=== PATIENT | male | born 1995 | race Caucasian/White ===

== ENCOUNTER 2020-11-11 09:06 | Outpatient (CLI) | payer OTHER | END 2020-11-11 09:07 | disposition home or self-care (01) | LOC: EMS 09:06 | DX: R42 Dizziness and giddiness (principal) ==

== ENCOUNTER 2020-11-11 09:58 | Emergency (ER) | payer OTHER ==
--- NOTE | 2020-11-11 10:09 | ED Physician Documentation ---
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 He was lifting a missile and afterwards developed presyncope. 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 The first time was about 1 minute, the second time was maybe 4 minutes. There is no associated chest pain or trouble breathing. He feels fine now. Review of Systems Ten Systems: 10 systems reviewed and negative Constitutional: denies: Fever, Fatigue Ears: denies: Drainage/discharge Nose: denies: Rhinorrhea / runny nose Cardiac: denies: Chest pain / pressure, Palpitations Respiratory: denies: Dyspnea, Cough PD PAST MEDICAL HISTORY - Present Medications Home Medications: Ambulatory Orders Medication Instructions Recorded Confirmed No Known Home Medications 11/11/20 11/11/20 - Allergies Allergies/Adverse Reactions: Allergies Allergy/AdvReac Type Severity Reaction Status Date / Time No Known Drug Allergies Allergy Verified 11/11/20 10:05 PD ED PE NORMAL - Vitals Vital signs reviewed: Yes - General General: Alert and oriented X 3, No acute distress - HEENT HEENT: PERRL, EOMI - Neck Neck: Supple, no meningeal sign, No bony TTP - Cardiac Cardiac: RRR, No murmur - Respiratory Respiratory: No respiratory distress, Clear bilaterally - Abdomen Abdomen: Non tender - Derm Derm: Normal color, Warm and dry - Extremities Extremities: No edema, No calf tenderness / cord - Neuro Neuro: Alert and oriented X 3, Normal speech Results - Vitals Vitals: Vital Signs - 24 hr 11/11/20 11/11/20 11/11/20 10:05 10:14 10:33 Temperature 36.8 C Heart Rate 80 77 Heart Rate [ 79 Sitting] Heart Rate [ 88 Standing] Heart Rate [ 78 Supine] Respiratory 16 18 Rate Blood Pressure 132/73 H 126/68 Blood Pressure 122/62 [Sitting] Blood Pressure 114/71 [Standing] Blood Pressure 127/71 [Supine] O2 Saturation 98 99 Oxygen O2 Source Room air - EKG (time done) 1002 Rate: Rate (enter#) (71) Rhythm: NSR [place]: Normal Intervals: Normal VA QRS: Normal Ischemia: Normal ST segments - Labs Labs: Laboratory Tests 11/11/20 11/11/20 10:25 10:25 WBC 8.3 RBC 4.71 Hgb 14.2 Hct 43.6 MCV 92.6 MCH 30.1 MCHC 32.6 RDW 12.4 Plt Count 271 MPV 10.3 Neut # (Auto) 6.6 Lymph # (Auto) 1.0 L [place] # (Auto) 0.5 Eos # (Auto) 0.1 Baso # (Auto) 0.0 Absolute Nucleated RBC 0.00 Nucleated RBC % 0.0 Sodium 143 Potassium 4.2 Chloride 106 Carbon Dioxide 29 Anion Gap 8.0 BUN 15 Creatinine 1.2 Estimated GFR (MDRD) 73 L Glucose 101 H Calcium 9.6 PD MEDICAL DECISION MAKING - ED course ED course: 24-year-old gentleman with presyncope this morning, no concerning other symptoms along with it such as chest pain or trouble breathing. His exam is normal. EKG is normal. Orthostatics are negative. Departure - Departure Disposition: 01 Home, Self Care Clinical Impression: Pre-syncope Condition: Good Record reviewed to determine appropriate education?: Yes Instructions: ED Near Syncope Vasovagal Comments: No worrisome findings today, your EKG and exam are normal. Your orthostatic vital signs are normal. Return for new or worsening symptoms. [place] Generally take it easy the rest of the day today.
[2020-11-11 10:30] LABS: BASOPHILS % (AUTO) 0.4 %; EOSINOPHILS # (AUTO) 0.1 10^3/uL (0.0-0.7); EOSINOPHILS % (AUTO) 1.6 %; HCT - HEMATOCRIT 43.6 % (42.0-52.0); HGB - HEMOGLOBIN 14.2 g/dL (14.0-18.0); LYMPHOCYTES % (AUTO) 12.1 %; MEAN CORPUSCULAR HEMOGLOBIN 30.1 pg (27.0-31.0); MEAN CORPUSCULAR HGB CONC 32.6 g/dL (32.0-36.0); MEAN CORPUSCULAR VOLUME 92.6 fL (80.0-94.0); MEAN PLATELET VOLUME 10.3 fL (7.4-11.4); MONOCYTES # (AUTO) 0.5 10^3/uL (0.0-1.0); MONOCYTES % (AUTO) 5.7 %; NEUTROPHILS # (AUTO) 6.6 10^3/uL (1.5-6.6); PLT - PLATELET COUNT 271 10^3/uL (130-450); RED BLOOD COUNT 4.71 10^6/uL (4.70-6.10); RED CELL DISTRIBUTION WIDTH 12.4 % (12.0-15.0); WHITE BLOOD COUNT 8.3 x10^3/uL (4.8-10.8)
[2020-11-11 10:34] VITALS: BP 126/68
[2020-11-11 10:39] LABS: CALCIUM 9.6 mg/dL (8.5-10.3); CREATININE 1.2 mg/dL (0.6-1.2); POTASSIUM 4.2 mmol/L (3.5-5.0)
== END 2020-11-11 10:59 | disposition home or self-care (01) ==
LOC: ED 09:58
DX: R55 Syncope and collapse (principal)
CPT/HCPCS: 36415; 80048; 85025; 93005; 99282; 99283

== ENCOUNTER 2021-07-01 15:13 | Emergency (ER) | payer OTHER ==
[2021-07-01 15:51] LABS: BASOPHILS % (AUTO) 0.5 %; EOSINOPHILS # (AUTO) 0.1 10^3/uL (0.0-0.7); EOSINOPHILS % (AUTO) 1.6 %; HCT - HEMATOCRIT 46.2 % (42.0-52.0); HGB - HEMOGLOBIN 15.2 g/dL (14.0-18.0); LYMPHOCYTES # (AUTO) 1.7 10^3/uL (1.5-3.5); LYMPHOCYTES % (AUTO) 22.2 %; MEAN CORPUSCULAR HEMOGLOBIN 29.5 pg (27.0-31.0); MEAN CORPUSCULAR HGB CONC 32.9 g/dL (32.0-36.0); MEAN CORPUSCULAR VOLUME 89.7 fL (80.0-94.0); MEAN PLATELET VOLUME 10.4 fL (7.4-11.4); MONOCYTES # (AUTO) 0.5 10^3/uL (0.0-1.0); MONOCYTES % (AUTO) 6.2 %; NEUTROPHILS # (AUTO) 5.2 10^3/uL (1.5-6.6); NEUTROPHILS % (AUTO) 69.2 %; PLT - PLATELET COUNT 304 10^3/uL (130-450); RED BLOOD COUNT 5.15 10^6/uL (4.70-6.10); RED CELL DISTRIBUTION WIDTH 12.6 % (12.0-15.0); WHITE BLOOD COUNT 7.6 x10^3/uL (4.8-10.8)
[2021-07-01 16:08] LABS: MUDS CUTOFF CONCENTRATIONS CUTOFF CONC BELOW:
--- NOTE | 2021-07-01 16:09 | ED Physician Documentation ---
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 He was reportedly told today that the [employer] would not extend his enlistment contract and he is due to be discharged from the [employer] in August of this year. He then reported to them that he thought suicidal as an option. He states that it was just a way to deal with anxiety and that he has no real plan for self-harm. He has never harmed himself in the past. 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 Patient is clear with his provider that he does not wish to harm himself and that the statement was simply a coping mechanism. Review of Systems Constitutional: reports: Reviewed and negative Ears: reports: Reviewed and negative Nose: reports: Reviewed and negative Cardiac: reports: Reviewed and negative Respiratory: reports: Reviewed and negative GI: reports: Reviewed and negative : reports: Reviewed and negative Skin: reports: Reviewed and negative Neurologic: reports: Reviewed and negative Psychiatric: reports: Anxiety. denies: Depressed, Suicidal, Homicidal, Hallucinations, Delusions, Insomnia Endocrine: reports: Reviewed and negative PD PAST MEDICAL HISTORY - Past Surgical History Past Surgical History: No - Present Medications Home Medications: Ambulatory Orders Medication Instructions Recorded Confirmed No Known Home Medications 11/11/20 07/01/21 - Allergies Allergies/Adverse Reactions: Allergies Allergy/AdvReac Type Severity Reaction Status Date / Time No Known Drug Allergies Allergy Verified 07/01/21 15:27 - Social History Does the pt smoke?: No Smoking Status: Never smoker Does the pt drink ETOH?: No Does the pt have substance abuse?: No - Immunizations Immunizations are current?: Yes PD ED PE NORMAL - General General: Alert and oriented X 3, No acute distress, Well developed/nourished - HEENT HEENT: Atraumatic, Ears normal, Moist mucous membranes - Neck Neck: Supple, no meningeal sign, No adenopathy, No JVD - Cardiac Cardiac: RRR, No murmur, No gallop - Respiratory Respiratory: No respiratory distress, Clear bilaterally - Abdomen Abdomen: Normal bowel sounds, Soft, Non tender - Back Back: No CVA TTP - Derm Derm: Normal color, Warm and dry, No rash - Neuro Neuro: Alert and oriented X 3, hostess cashier 2-12 intact Eye Opening: Spontaneous Motor: Obeys Commands Verbal: Oriented GCS Score: 15 - Psych Psych: Normal mood, Normal affect, Other (Denies SI/HI. No auditory or visual hallucinations. Denies anxiety at this time. He makes good eye contact, has fluid speech. He is forward thinking. Discussing plans for when he is outside of the .) Results - Vitals Vitals: Vital Signs - 24 hr 07/01/21 15:27 Temperature 36.4 C L Heart Rate 73 Respiratory 18 Rate Blood Pressure 143/88 H O2 Saturation 98 Oxygen O2 Source Room air - Labs Labs: Laboratory Tests 07/01/21 07/01/21 07/01/21 15:45 15:45 15:45 WBC 7.6 RBC 5.15 Hgb 15.2 Hct 46.2 MCV 89.7 MCH 29.5 MCHC 32.9 RDW 12.6 Plt Count 304 MPV 10.4 Neut # (Auto) 5.2 Lymph # (Auto) 1.7 [place] # (Auto) 0.5 Eos # (Auto) 0.1 Baso # (Auto) 0.0 Absolute Nucleated RBC 0.00 Nucleated RBC % 0.0 Sodium 139 Potassium 4.1 Chloride 99 L Carbon Dioxide 29 Anion Gap 11.0 BUN 14 Creatinine 1.3 H Estimated GFR (MDRD) 66 L Glucose 95 Calcium 9.6 Total Bilirubin 1.0 AST 25 ALT 32 Alkaline Phosphatase 51 Total Protein 8.2 Albumin 4.8 Globulin 3.4 Albumin/Globulin Ratio 1.4 Lipase 30 TSH 1.36 Urine Color Urine Clarity Urine pH Ur Specific [place] Urine Protein Urine Glucose (UA) Urine Ketones Urine Occult Blood Urine Nitrite Urine Bilirubin Urine Urobilinogen Ur Leukocyte Esterase Ur Microscopic Review Urine Culture Comments Salicylates < 6.0 Urine Opiates Screen Ur Oxycodone Screen Urine Methadone Screen Ur Propoxyphene Screen Acetaminophen < 10 L Ur Barbiturates Screen Ur Tricyclics Screen Ur Phencyclidine Scrn Ur Amphetamine Screen U Methamphetamines Scrn U Benzodiazepines Scrn Urine Cocaine Screen U Cannabinoids Screen Ethyl Alcohol < 5.0 07/01/21 16:00 WBC RBC Hgb Hct MCV MCH MCHC RDW Plt Count MPV Neut # (Auto) Lymph # (Auto) [place] # (Auto) Eos # (Auto) Baso # (Auto) Absolute Nucleated RBC Nucleated RBC % Sodium Potassium Chloride Carbon Dioxide Anion Gap BUN Creatinine Estimated GFR (MDRD) Glucose Calcium Total Bilirubin AST ALT Alkaline Phosphatase Total Protein Albumin Globulin Albumin/Globulin Ratio Lipase TSH Urine Color YELLOW Urine Clarity CLEAR Urine pH 6.0 Ur Specific [place] 1.020 Urine Protein NEGATIVE Urine Glucose (UA) NEGATIVE Urine Ketones NEGATIVE Urine Occult Blood NEGATIVE Urine Nitrite NEGATIVE Urine Bilirubin NEGATIVE Urine Urobilinogen 0.2 (NORMAL) Ur Leukocyte Esterase NEGATIVE Ur Microscopic Review NOT INDICATED Urine Culture Comments NOT INDICATED Salicylates Urine Opiates Screen NEGATIVE Ur Oxycodone Screen NEGATIVE Urine Methadone Screen NEGATIVE Ur Propoxyphene Screen NEGATIVE Acetaminophen Ur Barbiturates Screen NEGATIVE Ur Tricyclics Screen NEGATIVE Ur Phencyclidine Scrn NEGATIVE Ur Amphetamine Screen NEGATIVE U Methamphetamines Scrn NEGATIVE U Benzodiazepines Scrn NEGATIVE Urine Cocaine Screen NEGATIVE U Cannabinoids Screen NEGATIVE Ethyl Alcohol PD MEDICAL DECISION MAKING - ED course Complexity details: reviewed results, re-evaluated patient, considered differential, d/w patient, d/w apartment leasing consultant ED course: 25-year-old male was brought to the emergency department by his command for evaluation of stated suicidal thought. He was told that he would not be allowed to reenlist in the [employer] and stated that suicide was always an option. The [employer] has made arrangements for him to be seen by psychiatry on but they wanted reassurance and a second evaluation. On presentation to the ER the patient appears very well. He is somewhat embarrassed that he made the statement about wanting to harm himself and is adamant that he does not have plans to hurt himself and has never attempted self-harm in the past. Though he is not sure what he is going to do when he leaves the [employer] he is planning to return to where his family is at in [place]. Patient screening labs did not show any acute worrisome abnormalities. Once these were obtained I did request the patient's permission to speak with his chief who had brought him to the emergency department. We were able to speak openly at the bedside. The patient was fairly honest that he did not intend to self-harm. He does not desire hospitalization. He feels safe for discharge home. I did speak with Dr. Hensley again the [facility]. We discussed this case and given that the patient continues to deny thoughts of self-harm and will be going to the [facility] where he is not alone he is safe for discharge from the emergency department. The patient does not desire to remain here for a telepsych evaluation or to remain overnight for social work in the morning. The patient will thus be discharged home. The command is going to check on patient in the a.m. and he is going to see mental health on . Patient was notified that if at any point he had thoughts of self-harm he is to return immediately to the ER. Departure - Departure Disposition: Home, Self Care Clinical Impression: Suicidal thoughts Condition: Stable Record reviewed to determine appropriate education?: Yes Comments: Fabiano I wish you luck in your journey once you are discharged from the [employer]. I encourage you to continue to follow-up with mental health [place]. Your command will be giving you a phone call in the morning to ensure that you are okay. If at any point you feel unsafe or have thoughts of self-harm please do not hesitate to return immediately to the emergency department. We want you to feel better. The national suicide hot risk hotline number is
[2021-07-01 16:10] LABS: BILIRUBIN,URINE NEGATIVE (NEGATIVE); GLUCOSE, URINE (UA) NEGATIVE (NEGATIVE); KETONES,URINE (UA) NEGATIVE (NEGATIVE); LEUKOCYTE ESTERASE, URINE NEGATIVE (NEGATIVE); NITRITE,URINE NEGATIVE (NEGATIVE); OCCULT BLOOD,URINE NEGATIVE (NEGATIVE); PROTEIN,URINE NEGATIVE (NEGATIVE); UROBILINOGEN,URINE 0.2 (NORMAL) E.U./dL (NORMAL)
[2021-07-01 16:10] LABS: ACETAMINOPHEN < 10 ug/mL (10-30); ALBUMIN 4.8 g/dL (3.2-5.5); ALBUMIN/GLOBULIN RATIO 1.4 (1.0-2.2); ALKALINE PHOSPHATASE 51 IU/L (42-121); ALT ALANINE AMINOTRANSFERASE 32 IU/L (10-60); AST ASPARTATE AMINOTRANSFERASE 25 IU/L (10-42); BUN - BLOOD UREA NITROGEN 14 mg/dL (6-20); CALCIUM 9.6 mg/dL (8.5-10.3); CARBON DIOXIDE - CO2 29 mmol/L (21-32); CHLORIDE 99 mmol/L (101-111); CREATININE 1.3 mg/dL (0.6-1.2); ETOH - ETHANOL < 5.0 mg/dL; GFR - MDRD 66 (>89); GLUCOSE 95 mg/dL (70-100); LIPASE 30 U/L (22-51); POTASSIUM 4.1 mmol/L (3.5-5.0); SALICYLATE < 6.0 mg/dL; SODIUM 139 mmol/L (135-145); TOTAL PROTEIN 8.2 g/dL (6.7-8.2)
[2021-07-01 16:12] LABS: CLARITY,URINE CLEAR (CLEAR)
[2021-07-01 16:21] LABS: AMPHETAMINE SCREEN,URINE NEGATIVE (NEGATIVE); BARBITURATE SCREEN,UR NEGATIVE (NEGATIVE); BENZODIAZEPINES SCREEN, URINE NEGATIVE (NEGATIVE); COCAINE SCREEN URINE NEGATIVE (NEGATIVE); METHADONE SCREEN, URINE NEGATIVE (NEGATIVE); METHAMPHETAMINES SCREEN, URINE NEGATIVE (NEGATIVE); OPIATE SCREEN, URINE NEGATIVE (NEGATIVE); OXYCODONE SCREEN, URINE NEGATIVE (NEGATIVE); PROPOXYPHENE SCREEN, URINE NEGATIVE (NEGATIVE); THC CANNABINOID SCREEN, URINE NEGATIVE (NEGATIVE); TRICYCLIC ANTIDEPRESSANT,URINE NEGATIVE (NEGATIVE)
[2021-07-01 20:23] VITALS: BP 134/80
== END 2021-07-01 20:23 | disposition home or self-care (01) ==
LOC: ED 15:13
DX: R45.851 Suicidal ideations (principal)
CPT/HCPCS: 36415; 80053; 80306; 80307; 80320; 80329; 81001; 81003; 83690; 84443; 85025; 87086; 99283; 99284